=== PATIENT | female | born 1985 | race Caucasian/White ===

== ENCOUNTER 2021-02-20 07:43 | Day surgery (SDC) | payer BC ==
[~2021-02-20] VITALS: Ht 154.9 cm; Wt 63.6 kg
--- NOTE | 2021-02-20 08:58 | NUR ---
02/20/21 0857 Jerry Obregon 0.15MG EPI ADDED TO 30ML'S 0.5% MARCAINE TO ACHIEVE SOLUTION OF 0.5% MARCAINE WITH EPI 1:200,000.
== END 2021-02-20 10:10 | disposition home or self-care (01) ==
LOC: ORSCSDS 07:43
DX: Z30.2 Encounter for sterilization (principal); Z30.432 Encounter for removal of intrauterine contraceptive device; K66.0 Peritoneal adhesions (postprocedural) (postinfection)
CPT/HCPCS: 88300; 88302; J0171; J0690; J1100; J1885; J2405; J2704; J3010; J7120